=== PATIENT | female | born 1945 | race Caucasian/White ===

== ENCOUNTER 2018-06-08 11:12 | Emergency (ER) | payer MEDICARE, OTHER ==
[~2018-06-08] VITALS: Ht 165.1 cm; Wt 96.2 kg
[~2018-06-08 11:12] MED LIST: CALCIUM 500 MG1 EACH PO; DAILY VITAMIN1 EAC2 PO; DIAZEPAM5 MG PO; FLAX SEED OIL1000 MG PO; FLUOXETINE HCL10 M1 PO; HYDROCHLOROTHIA25 MG PO; LORATADINE10 MG PO; LOVASTATIN20 MG PO; METFORMIN HCL500 MG PO; METOPROLOL TART25 MG PO; NORCO 5-325 TA1 EACH PO; OMEPRAZOLE MAGN20 MG PO; TYLENOL325 MG PO; VITAMIN D1000 UNI1 PO
== END 2018-06-08 11:30 | disposition home or self-care (01) ==
LOC: ED 11:12
DX: K59.00 Constipation, unspecified (principal)

== ENCOUNTER 2020-07-24 11:52 | Emergency (ER) | payer MEDICARE, OTHER ==
[~2020-07-24] VITALS: Ht 165.1 cm; Wt 86.2 kg
[2020-07-24] MEDS ORDERED: ONDANSETRON ODT4 MG PO (13:20)
[2020-07-24] MEDS ORDERED: CEPHALEXIN500 MG PO (13:20)
== END 2020-07-24 13:32 | disposition home or self-care (01) ==
LOC: ED 11:52
DX: N39.0 Urinary tract infection, site not specified (principal); I10 Essential (primary) hypertension; E11.9 Type 2 diabetes mellitus without complications; E78.5 Hyperlipidemia, unspecified; F17.200 Nicotine dependence, unspecified, uncomplicated; Z88.8 Allergy status to other drugs, medicaments and biological substances; Z88.5 Allergy status to narcotic agent; Z79.899 Other long term (current) drug therapy; Z79.84 Long term (current) use of oral hypoglycemic drugs
CPT/HCPCS: 81001; 99284

== ENCOUNTER 2021-06-30 18:03 | Emergency (ER) | payer MEDICARE, OTHER ==
[~2021-06-30] VITALS: Ht 165.1 cm; Wt 80.7 kg
[~2021-06-30 18:03] MED LIST changes: +CEPHALEXIN500 MG PO; +ONDANSETRON ODT4 MG PO
--- OUTSIDE RECORDS SUMMARY | 2021-06-30 18:06 | XMS ---
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 [place] VISIT COUNT (12 MO.) 2 ALYSSA Petersen TOTAL 2 NOTE: Visits indicate total known visits. ED/UCC VISIT TRACKING (12 MO.) 06/30/2021 18:04 ALYSSA Jarrell OR TYPE: Emergency COMPLAINT: - HIGH BP 07/24/2020 11:53 ALYSSA Jarrell OR TYPE: Emergency COMPLAINT: - FEVER, POSS UTI, DIZZINESS DIAGNOSES: - Urinary tract infection, site not specified - Nicotine dependence, unspecified, uncomplicated - Hyperlipidemia, unspecified - Allergy status to narcotic agent - Allergy status to other drugs, medicaments and biological substances - Type 2 diabetes mellitus without complications - Dysuria - Other [facility] (current) drug therapy - prison (current) use of oral hypoglycemic drugs - Essential (primary) hypertension INPATIENT VISIT TRACKING (12 MO.) No inpatient visits to display in this time frame [email or web address]
[2021-06-30] MEDS ORDERED: BACLOFEN10 MG PO (19:49)
[2021-06-30] MEDS ORDERED: EUTHYROX150 MCG PO (19:49)
[2021-06-30] MEDS ORDERED: ATORVASTATIN CA40 MG PO (19:50)
--- NOTE | 2021-07-01 13:48 | EKG ---
[facility] [address] [facility] [place] [address] Signed Normal sinus rhythm Left axis deviation Nonspecific ST abnormality Abnormal ECG No previous ECGs available Confirmed by TED LOONEY MD ([id number] on 07/01/2021 1:48:18 PM Electronically Signed By: TED LOONEY MD 07/01/21 1348 PATIENT NAME: JJ ALBRIGHT Electrocardiogram DATE OF : 43 PHYSICIAN: TED LOONEY MD REPORT #: [id number] REPORT IS CONFIDENTIAL AND NOT TO BE RELEASED WITHOUT AUTHORIZATION
== END 2021-07-01 02:06 | disposition home or self-care (01) ==
LOC: ED 18:03
DX: I10 Essential (primary) hypertension (principal); E11.9 Type 2 diabetes mellitus without complications; E78.5 Hyperlipidemia, unspecified; F17.200 Nicotine dependence, unspecified, uncomplicated; Z88.8 Allergy status to other drugs, medicaments and biological substances; Z88.5 Allergy status to narcotic agent; Z79.899 Other long term (current) drug therapy; Z79.84 Long term (current) use of oral hypoglycemic drugs
CPT/HCPCS: 36415; 70450; 80053; 83735; 84484; 85025; 93005; 93010; 96374; 99284-25; J2060

== ENCOUNTER 2021-08-19 08:35 | Emergency (ER) | payer MEDICARE, OTHER ==
[~2021-08-19] VITALS: Ht 162.6 cm; Wt 80.7 kg
[~2021-08-19 08:35] MED LIST changes: +ATORVASTATIN CA40 MG PO; +BACLOFEN10 MG PO; +EUTHYROX150 MCG PO
--- OUTSIDE RECORDS SUMMARY | 2021-08-19 08:38 | XMS ---
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 [place] VISIT COUNT (12 MO.) 2 ALYSSA Petersen TOTAL 2 NOTE: Visits indicate total known visits. ED/UCC VISIT TRACKING (12 MO.) 08/19/2021 08:36 ALYSSA Jarrell OR TYPE: Emergency COMPLAINT: - R ARM SWELLING/PAIN 06/30/2021 18:04 ALYSSA Jarrell OR TYPE: Emergency COMPLAINT: - HIGH BP DIAGNOSES: - Type 2 diabetes mellitus without complications - Nicotine dependence, unspecified, uncomplicated - assisted (current) use of oral hypoglycemic drugs - Other skilled nursing (current) drug therapy - Essential (primary) hypertension - Allergy status to narcotic agent - Hyperlipidemia, unspecified - Allergy status to other drugs, medicaments and biological substances INPATIENT VISIT TRACKING (12 MO.) No inpatient visits to display in this time frame [email or web address]
[2021-08-19] MEDS ORDERED: SPIRIVA RESPIMAT4 G1 INH (08:51)
[2021-08-19] MEDS ORDERED: LABETALOL HCL200 MG PO (08:51)
[2021-08-19] MEDS ORDERED: TRAMADOL HCL50 MG PO (08:53)
[2021-08-19] MEDS ORDERED: CEPHALEXIN500 M1 PO (09:02)
== END 2021-08-19 09:19 | disposition home or self-care (01) ==
LOC: ED 08:35
DX: M70.21 Olecranon bursitis, right elbow (principal); I10 Essential (primary) hypertension; E11.9 Type 2 diabetes mellitus without complications; E78.5 Hyperlipidemia, unspecified; F17.200 Nicotine dependence, unspecified, uncomplicated; Z88.8 Allergy status to other drugs, medicaments and biological substances; Z88.5 Allergy status to narcotic agent; Z79.899 Other long term (current) drug therapy; Z79.84 Long term (current) use of oral hypoglycemic drugs
CPT/HCPCS: 99283; A9270

== ENCOUNTER 2021-11-15 07:48 | Emergency (ER) | payer MEDICARE, OTHER ==
[~2021-11-15] VITALS: Ht 162.6 cm; Wt 80.7 kg
[~2021-11-15 07:48] MED LIST changes: +CEPHALEXIN500 M1 PO; +LABETALOL HCL200 MG PO; +SPIRIVA RESPIMAT4 G1 INH; +TRAMADOL HCL50 MG PO
== END 2021-11-15 11:48 | disposition home or self-care (01) ==
LOC: ED 07:48
DX: U07.1 COVID-19 (principal); J44.9 Chronic obstructive pulmonary disease, unspecified; I10 Essential (primary) hypertension; E11.9 Type 2 diabetes mellitus without complications; E78.5 Hyperlipidemia, unspecified; F17.200 Nicotine dependence, unspecified, uncomplicated; Z88.5 Allergy status to narcotic agent; Z88.8 Allergy status to other drugs, medicaments and biological substances; Z88.1 Allergy status to other antibiotic agents
CPT/HCPCS: 36415; 71045; 80053; 85025; 87502; 96374; 99283-25; A9270; C9803; U0003

== ENCOUNTER 2021-11-22 10:11 | Emergency (ER) | payer MEDICARE, OTHER ==
[~2021-11-22] VITALS: Ht 162.6 cm; Wt 80.7 kg
[2021-11-22] MEDS ORDERED: ONDANSETRON ODT8 MG PO (12:23)
== END 2021-11-22 12:52 | disposition home or self-care (01) ==
LOC: ED 10:11
DX: U07.1 COVID-19 (principal); E87.1 Hypo-osmolality and hyponatremia; I10 Essential (primary) hypertension; E11.9 Type 2 diabetes mellitus without complications; J44.9 Chronic obstructive pulmonary disease, unspecified; E78.5 Hyperlipidemia, unspecified; F17.200 Nicotine dependence, unspecified, uncomplicated; Z79.899 Other long term (current) drug therapy; Z88.5 Allergy status to narcotic agent; Z88.8 Allergy status to other drugs, medicaments and biological substances; Z79.84 Long term (current) use of oral hypoglycemic drugs
CPT/HCPCS: 36415; 71045; 80053; 85025; J2405; J7030